=== PATIENT | female | born 1970 | race Caucasian/White ===

== ENCOUNTER 2017-09-14 18:34 | Emergency (ER) | payer OTHER ==
[2017-09-14 18:39] VITALS: RESP 16; TEMP 98.2; O2SAT 98
[2017-09-14] MEDS ORDERED: ASPIRIN 325 MG TAB PO ONE (18:50)
--- NOTE | 2017-09-14 18:52 | CPEKG ---
Heart Rate: 61 RR Interval: 984 P-R Interval: 184 QRSD Interval: 92 QT Interval: 408 QTC Interval: 411 P [place]: 49 QRS [place]: 60 T Wave [place]: 52 EKG Severity - NORMAL ECG - EKG Impression: SINUS RHYTHM Electronically Signed By: Arianna Borjas 15-Sep-2017 00:29:20
--- NOTE | 2017-09-14 18:54 | EDPHY ---
HPI/HX/ROS/PE/MDM Narrative: CHIEF COMPLAINT: Chest discomfort HISTORY OF PRESENT ILLNESS: This patient is a 46 year old female complaining of chest discomfort, worsening today. This has been intermittent since summer. Worse when sitting, changes with movement and seemed musculoskeletal. An EKG in February was normal. She has not had further cardiac followup. Yesterday, the sensation was more persistent throughout the day and she felt "off" in general. Today, her discomfort felt different than usual. It feels like pressure or soreness, not increased with deep inspiration. She is not sure whether it radiates as she frequently has discomfort in her shoulder, arms, or shoulders. She has not noted any new discomfort in those areas. Today, the discomfort has been persistent and she has associated nausea, which is unusual for her. Yesterday, had one short episode of productive cough, but has not otherwise felt ill. She denies history of diabetes or hypertension, and is a non-smoker. No family history of CAD. No fever, chills, shortness of breath, palpitations, abdominal pain, vomiting, diarrhea, urinary complaints, headache, lightheadedness. REVIEW OF SYSTEMS: Aside from elements discussed in the HPI, a comprehensive 10-point review of systems was reviewed and is negative. PAST MEDICAL HISTORY: Hypothyroidism. SOCIAL HISTORY: . PCP Dr. Savage. Epps patient. VITAL SIGNS: Reviewed by me GENERAL: Well-developed, well-nourished, no acute distress. HEENT: Atraumatic. Eyes: No icterus, no injection. Mouth: moist mucous membranes. No erythema or lesions. Neck: supple with no adenopathy. LUNGS: Clear to auscultation bilaterally, no wheezes, rhonchi or rales. CARDIAC: Mild tenderness to palpation of left sternal border. Regular rate and rhythm, no rubs, murmurs or gallops. ABDOMEN: Soft, nontender, nondistended, bowel sounds normal. BACK: No CVA tenderness. EXTREMITIES: No trauma. No edema. Range of motion is normal throughout. NEURO: Alert and oriented, grossly nonfocal. SKIN: Warm and dry, no rash. PSYCHIATRIC: Normal mentation, no agitation. Portions of this note were transcribed by a medical office specialist. I personally performed a history, physical exam, medical decision making, and confirmed accuracy of information the transcribed note. ED Course: 46 y/o female presents with chest discomfort, intermittent since last summer and worsening today. Plan for EKG, chest x-ray, labs including CBC, chemistries , troponin, d-dimer. Nurse administered 324mg PO aspirin. Plan to administer GI cocktail for symptom relief. 12-LEAD EKG: Please see the full report in [facility]. My interpretation: Normal sinus rhythm, rate 61. Laboratory studies unremarkable. Troponin and d-dimer negative. Chest x-ray negative for acute processes. Plan to discharge home in good condition. Discussed follow up including outpatient cardiac stress test. Plan to consult with [facility] regarding this patient. Return precautions discussed. 20:00 Consulted with [facility]. The patient should receive a call from [facility] cardiology tomorrow. She has been instructed to call them if she does not hear by the end of the day. Patient is comfortable with this plan. MDM: After history and physical examination, the differential for chest pain was considered, including but not limited to, myocardial ischemia, acute coronary syndrome, pulmonary embolus, chest wall pain, pleural inflammation and pulmonary infectious causes. - Data Points Imaging Results: CXR: Impression: Clear lungs. No acute process. Dictated By: Dani Hernandez MD Imaging: I viewed and interpreted images myself Laboratory Results: Laboratory Results 09/14/17 18:47 09/14/17 18:47 Medications Given: Discontinued Medications Al Hydroxide/Mg Hydroxide (Maalox Susp) 30 ml PO ONCE ONE Stop: 09/14/17 19:14 Last Admin: 09/14/17 19:20 Dose: 30 ml Aspirin (Aspirin) 325 mg PO EDNOW ONE Stop: 09/14/17 18:51 Last Admin: 09/14/17 18:52 Dose: 325 mg Hyoscyamine Sulfate (Levsin, Hyomax-Sl) 0.25 mg PO ONCE ONE Stop: 09/14/17 19:14 Last Admin: 09/14/17 19:20 Dose: 0.25 mg Ketorolac Tromethamine (Toradol) 15 mg IVP EDNOW ONE Stop: 09/14/17 20:04 Last Admin: 09/14/17 20:24 Dose: 15 mg Lidocaine (Lidocaine 2% Viscous) 15 ml PO ONCE ONE Stop: 09/14/17 19:14 Last Admin: 09/14/17 19:20 Dose: 15 ml General Time Seen by Provider: 09/14/17 18:52 Initial Vital Signs: Initial Vital Signs Temperature (C) 36.8 C 09/14/17 18:35 Heart Rate 65 09/14/17 18:35 Respiratory Rate 16 09/14/17 18:35 Blood Pressure 132/91 H 09/14/17 18:35 O2 Sat (%) 98 09/14/17 18:35 O2 Delivery Mode Room Air Allergies/Adverse Reactions: No Known Allergies Allergy (Unverified 09/14/17 18:39) Home Medications: Medication Instructions Recorded Levothyroxine [Synthroid 100 mcg 100 mcg PO 09/14/17 (*)] Departure - Departure Disposition: Home, Routine, Self-Care Clinical Impression: Chest discomfort Condition: Good Instructions: Chest Pain (ED) Additional Instructions: 1. Follow up with [facility] this week for an outpatient cardiac stress test. I spoke with [facility] and your primary care physician should be calling over a referral to cardiology - they should contact you tomorrow. If you do not hear from them by the end of the day, call the [facility] advice line and ask to be connected to cardiology. 2. Return to the Emergency Department for fever, chest pain, shortness of breath , increasing pain or other worsening of condition. Referrals: [facility] ,. [Edm Groups for Call Sched] - As per Instructions Report Scribed for: Arianna Borjas Report Scribed by: Cherry Maloney Date of Report: 09/14/17 Time of Report: 19:17
[2017-09-14 18:59] LABS: PLATELET COUNT 258 10^3/uL (150-400)
[2017-09-14] MEDS ORDERED: LIDOCAINE 2% VISCOUS 15 ML UDCUP PO ONE (19:13)
[2017-09-14] MEDS ORDERED: HYOSCYAMINE SULFATE 0.125 MG TAB PO ONE (19:13)
[2017-09-14] MEDS ORDERED: MAG HYDROX/AL HYDROX/SIMETH 30 ML UDCUP PO ONE (19:13)
[2017-09-14] MEDS ORDERED: KETOROLAC 15 MG/1 ML SDV IVP ONE (20:03)
[2017-09-14 20:38] VITALS: BP 114/75; PULSE 60
== END 2017-09-14 20:36 | disposition home or self-care (01) ==
DX: R07.89 Other chest pain (principal)
CPT/HCPCS: 96374; J1885